=== PATIENT | female | born 1965 | race Caucasian/White ===

== ENCOUNTER 2024-10-03 13:37 | Emergency (ER) | payer SELFPAY ==
[2024-10-03] MEDS ORDERED: Sodium Chloride 0.9% 2.5 ML Syringe FLUSH PRN (13:41)
[2024-10-03] MEDS: Diltiazem 25 MG/5 ML SDV IVPUSH ONE (14:01)
[2024-10-03] MEDS: Sodium Chloride 0.9% 10 ML Syringe FLUSH PRN (14:01)
[2024-10-03 14:07] LABS: BASOPHILS ABSOLUTE AUTO 0.02 K/uL (0.00-0.20); BASOPHILS PERCENT AUTO 0.3 % (0.0-1.0); HEMATOCRIT 35.7 % (37.0-47.0); HEMOGLOBIN 12.2 g/dL (12.0-16.0); IMMATURE GRAN ABSOLUTE AUTO 0.02 K/uL (0.00-0.05); IMMATURE GRAN PERCENT AUTO 0.3 % (0.0-0.4); LYMPHOCYTES ABSOLUTE AUTO 0.95 K/uL (1.00-4.80); LYMPHOCYTES PERCENT AUTO 12.8 % (24.0-44.0); MEAN CORPUSCULAR HEMOGLOBIN 30.3 pg (28.0-32.0); MEAN CORPUSCULAR HGB CONC 34.2 g/dL (32.0-36.0); MEAN CORPUSCULAR VOLUME 88.6 fL (83.0-99.0); MEAN PLATELET VOLUME 9.3 fL (9.4-12.3); MONOCYTES ABSOLUTE AUTO 0.36 K/uL (0.00-0.80); MONOCYTES PERCENT AUTO 4.8 % (0.0-8.0); NEUTROPHILS ABSOLUTE AUTO 6.08 K/uL (1.80-7.70); NEUTROPHILS PERCENT AUTO 81.8 % (41.0-71.0); PLATELET COUNT,PLT 250 K/uL (150-400); RED BLOOD CELL COUNT 4.03 M/uL (4.10-5.30); WHITE BLOOD CELL COUNT,WBC 7.43 K/uL (3.9-11.3)
[2024-10-03 14:19] LABS: INR 0.95 (0.86-1.11)
[2024-10-03 14:37] LABS: A/G RATIO 0.9 (0.9-1.6); BILIRUBIN TOTAL 0.1 mg/dL (0.2-1.0); CALCIUM 8.5 mg/dL (8.5-10.1); CREATININE 0.8 mg/dL (0.6-1.0); EST CRCL DRUG DOSING (CG) 66.45 mL/min; POTASSIUM,K 3.7 mmol/L (3.5-5.1); PROTEIN TOTAL,TP 6.4 g/dL (6.4-8.2); TSH ULTRASENSITIVE 1.67 uIU/mL (0.36-3.74)
[2024-10-03 15:09] VITALS: BP 132/68; PULSE 71
== END 2024-10-03 15:27 | disposition home or self-care (01) ==
LOC: MW.ED 13:37
DX: I48.91 Unspecified atrial fibrillation (principal); Z88.2 Allergy status to sulfonamides; Z88.8 Allergy status to other drugs, medicaments and biological substances; Z79.899 Other long term (current) drug therapy; Z75.8 Other problems related to medical facilities and other health care
CPT/HCPCS: 36415; 71045; 80053; 83690; 83880; 84443; 84484; 85025; 85610; 93005; 96374; 96375; 99285; J3360; J3490

== ENCOUNTER 2024-10-07 18:28 | Emergency (ER) | payer SELFPAY ==
[2024-10-07] MEDS: Propofol 200 MG/20 ML SDV IVPUSH ONE ×2 (20:46→21:14)
[2024-10-07] MEDS: Sodium Chloride 0.9% 1,000 ML IV ONE (20:58)
[2024-10-07] MEDS: Propofol 200 MG/20 ML SDV IVPUSH STA ×5 (21:01→21:14)
[2024-10-07] MEDS: Propofol 200 MG/20 ML SDV ONE (21:14)
[2024-10-07 21:34] LABS: BASOPHILS ABSOLUTE AUTO 0.01 K/uL (0.00-0.20); BASOPHILS PERCENT AUTO 0.1 % (0.0-1.0); EOSINOPHILS ABSOLUTE AUTO 0.11 K/uL (0.00-0.45); EOSINOPHILS PERCENT AUTO 0.7 % (0.0-6.0); HEMATOCRIT 34.9 % (37.0-47.0); HEMOGLOBIN 12.7 g/dL (12.0-16.0); IMMATURE GRAN ABSOLUTE AUTO 0.07 K/uL (0.00-0.05); IMMATURE GRAN PERCENT AUTO 0.4 % (0.0-0.4); LYMPHOCYTES ABSOLUTE AUTO 1.12 K/uL (1.00-4.80); LYMPHOCYTES PERCENT AUTO 7.1 % (24.0-44.0); MEAN CORPUSCULAR HEMOGLOBIN 30.2 pg (28.0-32.0); MEAN CORPUSCULAR HGB CONC 36.4 g/dL (32.0-36.0); MEAN CORPUSCULAR VOLUME 83.1 fL (83.0-99.0); MEAN PLATELET VOLUME 9.7 fL (9.4-12.3); MONOCYTES ABSOLUTE AUTO 0.63 K/uL (0.00-0.80); NEUTROPHILS ABSOLUTE AUTO 13.81 K/uL (1.80-7.70); NEUTROPHILS PERCENT AUTO 87.7 % (41.0-71.0); PLATELET COUNT,PLT 429 K/uL (150-400); WHITE BLOOD CELL COUNT,WBC 15.75 K/uL (3.9-11.3)
[2024-10-07 21:42] LABS: CALCIUM 8.9 mg/dL (8.5-10.1); CARBON DIOXIDE,CO2 23.8 mmol/L (21.0-32.0); CREATININE 0.7 mg/dL (0.6-1.0); EST CRCL DRUG DOSING (CG) 75.94 mL/min; MAGNESIUM 1.3 mg/dL (1.8-2.4); POTASSIUM,K 3.6 mmol/L (3.5-5.1)
[2024-10-07] MEDS: Albuterol/Ipratropium 3.0-0.5 MG/3 ML Neb Soln NEB ONE (21:42)
[2024-10-07] MEDS: LORazepam 2 MG/ML SDV IVPUSH ONE (22:02)
[2024-10-07] MEDS: Magnesium Sulfate/Water Premix 4 GM in Premix Bag 1 BAG IV ONE (22:40)
[2024-10-07] MEDS: Ketorolac 30 MG/ML SDV IVPUSH ONE (22:40)
[2024-10-08] MEDS: Apixaban 5 MG Tab PO ONE (01:52)
[2024-10-08] MEDS: Lidocaine 4% 1 each Patch TOP ONE (02:04)
[2024-10-08 03:41] VITALS: BP 104/68; PULSE 91
== END 2024-10-08 02:05 | disposition home or self-care (01) ==
LOC: MW.ED 18:28
DX: I48.91 Unspecified atrial fibrillation (principal); E83.42 Hypomagnesemia; F17.210 Nicotine dependence, cigarettes, uncomplicated; Z88.1 Allergy status to other antibiotic agents; Z88.2 Allergy status to sulfonamides; Z88.8 Allergy status to other drugs, medicaments and biological substances; Z79.01 Long term (current) use of anticoagulants; Z79.899 Other long term (current) drug therapy
CPT/HCPCS: 36415; 71045; 80048; 83735; 85025; 92960; 93005; 94640; 96361; 96365; 96366; 96375; 99152; 99153; 99285; A9270; J1885; J2060; J2704; J3475; J7030; 93010; J7620-GY

== ENCOUNTER 2024-10-09 13:39 | Emergency (ER) | payer SELFPAY ==
[2024-10-09 14:04] LABS: BASOPHILS ABSOLUTE AUTO 0.01 K/uL (0.00-0.20); BASOPHILS PERCENT AUTO 0.2 % (0.0-1.0); EOSINOPHILS ABSOLUTE AUTO 0.01 K/uL (0.00-0.45); EOSINOPHILS PERCENT AUTO 0.2 % (0.0-6.0); HEMATOCRIT 32.5 % (37.0-47.0); HEMOGLOBIN 11.5 g/dL (12.0-16.0); IMMATURE GRAN ABSOLUTE AUTO 0.02 K/uL (0.00-0.05); IMMATURE GRAN PERCENT AUTO 0.4 % (0.0-0.4); LYMPHOCYTES ABSOLUTE AUTO 0.85 K/uL (1.00-4.80); MEAN CORPUSCULAR HEMOGLOBIN 30.3 pg (28.0-32.0); MEAN CORPUSCULAR HGB CONC 35.4 g/dL (32.0-36.0); MEAN CORPUSCULAR VOLUME 85.5 fL (83.0-99.0); MEAN PLATELET VOLUME 9.2 fL (9.4-12.3); MONOCYTES ABSOLUTE AUTO 0.29 K/uL (0.00-0.80); MONOCYTES PERCENT AUTO 5.1 % (0.0-8.0); NEUTROPHILS ABSOLUTE AUTO 4.49 K/uL (1.80-7.70); NEUTROPHILS PERCENT AUTO 79.1 % (41.0-71.0); PLATELET COUNT,PLT 235 K/uL (150-400); WHITE BLOOD CELL COUNT,WBC 5.67 K/uL (3.9-11.3)
[2024-10-09] MEDS: LORazepam 0.5 MG Tab PO ONE (14:13)
[2024-10-09 14:45] LABS: A/G RATIO 0.9 (0.9-1.6); ALBUMIN 2.9 g/dL (3.4-5.0); BILIRUBIN TOTAL 0.3 mg/dL (0.2-1.0); CALCIUM 8.3 mg/dL (8.5-10.1); CARBON DIOXIDE,CO2 30.6 mmol/L (21.0-32.0); CREATININE 0.9 mg/dL (0.6-1.0); EST CRCL DRUG DOSING (CG) 59.07 mL/min; MAGNESIUM 1.9 mg/dL (1.8-2.4); POTASSIUM,K 3.1 mmol/L (3.5-5.1); PROTEIN TOTAL,TP 6.2 g/dL (6.4-8.2)
[2024-10-09] MEDS: Magnesium Oxide 400 MG Tab PO ONE (15:20)
[2024-10-09] MEDS: Phosphorus #1 250 MG Tab PO ONE (15:20)
[2024-10-09] MEDS: Potassium Chloride 10% 20 MEQ/15 ML Soln 15 ML UD Cup PO ONE (15:21)
[2024-10-09] MEDS: Potassium Chloride 20 MEQ Tab.ER PO ONE (16:06)
[2024-10-09 16:40] VITALS: BP 114/71; PULSE 84
== END 2024-10-09 16:42 | disposition home or self-care (01) ==
LOC: MW.ED 13:39
DX: R00.2 Palpitations (principal); I48.91 Unspecified atrial fibrillation; Z88.2 Allergy status to sulfonamides; Z88.8 Allergy status to other drugs, medicaments and biological substances; Z79.01 Long term (current) use of anticoagulants; Z79.899 Other long term (current) drug therapy
CPT/HCPCS: 36415; 71045; 80053; 83735; 83880; 84100; 85025; 93005; 99285; A9270

== ENCOUNTER 2024-11-27 16:21 | Emergency (ER) | payer SELFPAY ==
[2024-11-27] MEDS ORDERED: Sodium Chloride 0.9% 10 ML Syringe FLUSH PRN (16:36)
[2024-11-27] MEDS ORDERED: Sodium Chloride 0.9% 2.5 ML Syringe FLUSH PRN (16:36)
[2024-11-27 16:42] LABS: BASOPHILS ABSOLUTE AUTO 0.01 K/uL (0.00-0.20); BASOPHILS PERCENT AUTO 0.1 % (0.0-1.0); HEMATOCRIT 39.8 % (37.0-47.0); HEMOGLOBIN 13.3 g/dL (12.0-16.0); IMMATURE GRAN ABSOLUTE AUTO 0.03 K/uL (0.00-0.05); IMMATURE GRAN PERCENT AUTO 0.3 % (0.0-0.4); LYMPHOCYTES ABSOLUTE AUTO 1.76 K/uL (1.00-4.80); LYMPHOCYTES PERCENT AUTO 18.4 % (24.0-44.0); MEAN CORPUSCULAR HEMOGLOBIN 28.3 pg (28.0-32.0); MEAN CORPUSCULAR HGB CONC 33.4 g/dL (32.0-36.0); MEAN CORPUSCULAR VOLUME 84.7 fL (83.0-99.0); MEAN PLATELET VOLUME 9.2 fL (9.4-12.3); MONOCYTES ABSOLUTE AUTO 0.51 K/uL (0.00-0.80); MONOCYTES PERCENT AUTO 5.3 % (0.0-8.0); NEUTROPHILS ABSOLUTE AUTO 7.23 K/uL (1.80-7.70); NEUTROPHILS PERCENT AUTO 75.9 % (41.0-71.0); PLATELET COUNT,PLT 417 K/uL (150-400); WHITE BLOOD CELL COUNT,WBC 9.54 K/uL (3.9-11.3)
[2024-11-27 16:48] LABS: INR 1.03 (0.86-1.11)
[2024-11-27] MEDS: methylPREDNISolone Sodium Succinate 125 MG/2 ML SDV IVPUSH ONE (17:21)
[2024-11-27] MEDS: Albuterol/Ipratropium 3.0-0.5 MG/3 ML Neb Soln NEB ONE (17:21)
[2024-11-27] MEDS: Diltiazem 25 MG/5 ML SDV IVPUSH ONE ×2 (17:21)
[2024-11-27 17:29] LABS: A/G RATIO 0.7 (0.9-1.6); ALANINE AMINOTRANSFERASE,ALT 25 IU/L (14-63); ALBUMIN 3.1 g/dL (3.4-5.0); ALKALINE PHOSPHATASE 134 U/L (46-116); ASPARTATE AMNIOTRANSFERASE,AST 23 IU/L (15-37); BILIRUBIN TOTAL 0.3 mg/dL (0.2-1.0); BLOOD UREA NITROGEN,BUN 13 mg/dL (7.0-18.0); CALCIUM 9.6 mg/dL (8.5-10.1); CARBON DIOXIDE,CO2 22.5 mmol/L (21.0-32.0); CHLORIDE,CL 96 mmol/L (98-107); EST CRCL DRUG DOSING (CG) 53.16 mL/min; GLUCOSE RANDOM 135 mg/dL (74-106); LIPASE 82 U/L (16-77); MAGNESIUM 1.8 mg/dL (1.8-2.4); POTASSIUM,K 3.6 mmol/L (3.5-5.1); PRO B-TYPE NATRIUR PEPT,BNPPRO 429 pg/mL (0-125); PROTEIN TOTAL,TP 7.4 g/dL (6.4-8.2); SODIUM,NA 133 mmol/L (136-145); TSH ULTRASENSITIVE 2.42 uIU/mL (0.36-3.74)
[2024-11-27 17:31] LABS: ESTIMATED GFR 64 mL/min (>60); ETHANOL BLOOD MEDICAL < 3.0 mg/dL
[2024-11-27] MEDS: Iopamidol 755 Mg/ML 100 ML Bottle IVPUSH ONE (18:52)
[2024-11-27 19:45] LABS: AMPHETAMINES SCREEN, URINE NEGATIVE (CUTOFF=500); BARBITURATE SCREEN,URINE NEGATIVE (CUTOFF=200); BENZODIAZEPINES SCREEN,URINE PRESUMPTIVE POSITIVE (CUTOFF=150); BUPRENORPHINE SCREEN,URINE NEGATIVE (CUTOFF=10); METHADONE SCREEN, URINE NEGATIVE (CUTOFF=200); METHAMPHETAMINES SCREEN, URINE NEGATIVE (CUTOFF=500); OXYCODONE SCREEN,URINE NEGATIVE (CUT0FF=100); PCP SCREEN,URINE NEGATIVE (CUTOFF=25); THC SCREEN,URINE 20 NG/ML NEGATIVE (CUTOFF=50)
[2024-11-27] MEDS ORDERED: Diltiazem 100 MG in Sodium Chloride 0.9% 100 ML IV SCH (20:30)
[2024-11-27] MEDS: Sodium Chloride 0.9% 0 ML ONE (20:59)
[2024-11-27] MEDS: LORazepam 2 MG/ML SDV IVPUSH ONE (21:01)
[2024-11-27] MEDS: Diltiazem 100 MG in Sodium Chloride 0.9% 100 ML IV SCH (21:06)
[2024-11-27 22:17] VITALS: BP 130/77; PULSE 102
[2024-11-27] MEDS: Ibuprofen 400 MG Tab PO ONE (22:56)
[2024-11-27] MEDS: Acetaminophen 500 MG Tab PO ONE (22:56)
[2024-11-28] MEDS: Diltiazem 100 MG in Sodium Chloride 0.9% 100 ML IV SCH (00:19)
[2024-11-28] MEDS: LORazepam 2 MG/ML SDV IVPUSH ONE (00:24)
== END 2024-11-28 00:35 ==
LOC: MW.ED 16:21
DX: I48.91 Unspecified atrial fibrillation (principal); R91.8 Other nonspecific abnormal finding of lung field; Z88.1 Allergy status to other antibiotic agents; Z88.2 Allergy status to sulfonamides; Z88.8 Allergy status to other drugs, medicaments and biological substances; Z79.01 Long term (current) use of anticoagulants; Z79.899 Other long term (current) drug therapy
CPT/HCPCS: 36415; 71045; 71260; 80053; 80305; 80307; 83605; 83690; 83735; 83880; 84443; 84484; 85025; 85610; 87428; 93005; 94640; 94660; 96365; 96366; 96375; 96376; 99285; A9270; J2060; J2919; J3490; Q9967; 93010; 99291; J7620-GY